=== PATIENT | female | born 1970 | race Caucasian/White ===

== ENCOUNTER 2017-10-13 10:21 | Emergency (ER) | payer BC, MEDICAID ==
[~2017-10-13] VITALS: Ht 162.6 cm; Wt 80.0 kg
[~2017-10-13 10:21] MED LIST: ALPR-624 PO; ARIP10TA15 PO; DULO-31 PO; MULT-1085 PO; OXCA600T5 PO; PARO40TA PO; VALS1TAB6 PO
[2017-10-13] MEDS ORDERED: ketorolac trometh inj. 60 MG/2 ML VIAL IM ONE (11:50)
[2017-10-13] MEDS ORDERED: diazepam 5mg tablet PO ONE (11:50)
[2017-10-13] MEDS ORDERED: METH-360 PO (11:54)
[2017-10-13] MEDS ORDERED: IBUP-1985 PO (11:54)
[2017-10-13 12:04] VITALS: BP 163/113
== END 2017-10-13 12:05 | disposition home or self-care (01) ==
LOC: ER 10:21
DX: S22.31XA Fracture of one rib, right side, initial encounter for closed fracture (principal); G89.29 Other chronic pain; Z88.5 Allergy status to narcotic agent; Z88.8 Allergy status to other drugs, medicaments and biological substances; Z79.899 Other long term (current) drug therapy; X58.XXXA Exposure to other specified factors, initial encounter; Y93.89 Activity, other specified; Y92.89 Other specified places as the place of occurrence of the external cause; Y99.8 Other external cause status
CPT/HCPCS: 71100; 96372; 99284; J1885